=== PATIENT | male | born 1995 | race Caucasian/White ===

== ENCOUNTER 2020-10-29 09:23 | Outpatient (REF) | payer OTHER, SELFPAY ==
[2020-10-29 12:17] LABS: Alanine Aminotransferase 78 U/L (0-40); Albumin Level 4.8 g/dL (3.5-5.0); Alkaline Phosphatase 41 U/L (39-117); Anion Gap 12 (12-20); Aspartate Amino Transferase 52 U/L (5-37); Blood Urea Nitrogen 13 mg/dL (9-16); Calcium 9.6 mg/dL (8.4-10.2); Carbon Dioxide 32 mmol/L (22-29); Chloride 101 mmol/L (96-108); Cholesterol 201 mg/dL; Estimated Glomerular Filt Rate > 60; Glucose Fasting 95 mg/dL (60-99); HDL Cholesterol 35 mg/dL; LDL Cholesterol Calculated 138 mg/dl; Potassium 3.7 mmol/L (3.3-5.1); Sodium 141 mmol/L (135-145); Total Protein 7.6 g/dL (6.5-8.0); Triglycerides 143 mg/dL
[2020-10-29 13:18] LABS: TSH reflex Free T4 2.85 uIU/mL (0.32-4.0)
== END 2020-10-29 09:24 | disposition home or self-care (01) ==
LOC: HO.HMGCLDS 09:23
PROVIDERS: PCP Nurse Practitioner Family; Visit Provider Nurse Practitioner Family
DX: Z00.00 Encounter for general adult medical examination without abnormal findings (principal)
CPT/HCPCS: 36415; 80053; 80061; 84443

== ENCOUNTER 2020-11-29 09:54 | Outpatient (REF) | payer OTHER, SELFPAY ==
--- NOTE | ~2020-11-29 | US_ITS ---
EXAMINATION: US ABDOMEN COMPLETE CLINICAL INFORMATION: Elevated LFTs. COMPARISON: None. TECHNIQUE: Real-time imaging of the abdominal viscera. FINDINGS: PANCREAS: Normal. ABDOMINAL AORTA: The proximal, mid, and distal segments are normal in caliber. INFERIOR VENA CAVA: Visualized portions are normal. LIVER: The liver is normal in size. The liver contour is normal. There is diffuse increased liver echogenicity. No focal hepatic lesion. There is no intrahepatic biliary duct dilatation seen. GALLBLADDER: Normal. The gallbladder is physiologically distended without evidence of stones, sludge, polyps, wall thickening or pericholecystic fluid. COMMON BILE DUCT: Normal in caliber measuring 0.24 cm in diameter. RIGHT KIDNEY: Normal. No hydronephrosis. No renal calculi or focal parenchymal lesions. The kidney measures 12.5 cm in maximum dimension. LEFT KIDNEY: Normal. No hydronephrosis. No renal calculi or focal parenchymal lesions. The kidney measures 13.4 cm in maximum dimension. SPLEEN: Normal. The spleen measures 13.0 cm in maximum dimension. FREE FLUID: None. US/US abdomen complete IMPRESSION: Mild hepatic steatosis. No focal lesion seen. The rest of the abdominal ultrasound is unremarkable.
== END 2020-11-29 09:55 | disposition home or self-care (01) ==
LOC: HO.HMGCX 09:54
PROVIDERS: PCP Nurse Practitioner Family; Visit Provider Nurse Practitioner Family
DX: R74.8 Abnormal levels of other serum enzymes (principal)
CPT/HCPCS: 76700

== ENCOUNTER 2020-12-13 04:10 | Emergency (ER) | payer OTHER, SELFPAY ==
--- NOTE | ~2020-12-13 | XR_ITS ---
EXAMINATION: XR KNEE, LEFT CLINICAL INFORMATION: Lateral patellar pain. Rule out fracture COMPARISON: None TECHNIQUE: Four views of the left knee. FINDINGS: No fracture or subluxation. Compartmental joint spaces are maintained. No joint effusion. The soft tissues are unremarkable. XR/XR knee LT 4V IMPRESSION: Normal left knee.
[2020-12-13 04:33] VITALS: BP 171/118; PULSE 89; RESP 16; TEMP 37.3; O2SAT 97; BMI 55.0
--- NOTE | 2020-12-13 04:41 | ED.LOWEXIN ---
HPI - Extremity Injury (Lower) General Chief Complaint: Extremity Injury, Lower Stated Complaint: Knee pain Time Seen by Provider: 12/13/20 04:32 Source: patient Mode of arrival: ambulatory Limitations: no limitations History of Present Illness HPI Narrative: 25-year-old male who presents emergency department for evaluation of left knee pain. He states that he was sitting on the floor approximately 4 days prior and he pushed on his kneecap which caused him to have pain. He states that the pain eventually resolved but then returned. He states that over the past 4 nights he keeps getting pain in the left knee and he points to the left lateral patella when asked to localize the pain. He has difficulty describing the character of the pain but he states that it is constant, worse at night, worse with bending his knee and worse with walking. He states he is able to walk but he is limping. He did not take any medications for the pain. He denied fever, chills, fatigue, chest pain, cough or shortness of breath. Related Data Home Medications Medication Instructions Recorded Confirmed No Known Home Meds 10/21/20 11/15/20 Allergies Allergy/AdvReac Type Severity Reaction Status Date / Time Sulfa (Sulfonamide Allergy Unknown SWOLLEN Verified 12/13/20 04:47 Antibiotics) LIPS [SULFA (SULFONAMIDE ANTIBIOTICS)] Review of Systems Review of Systems: Yes all other systems are reviewed and are negative [facility] Past Medical History [facility] Narrative: Patient has history of hypertension, hyperlipidemia, abnormal LFTs. He denies tobacco, alcohol and drug use. Medical History (Updated 12/13/20 @ 06:03 by Mundo Linton MD) No known health problems Family History Family History Father No problems noted. Mother No problems noted. Maternal Grandmother Lung cancer Social History Social History (Updated 12/13/20 @ 04:37 by Milagros Cross) Alcohol intake: never Smoking Status: Never smoker Use of substances other than those prescribed or required for medical reasons: No Advance Directives: No Physical Exam Vital Signs: Vital Signs: Last Vital Signs Temp 99.2 F 12/13/20 04:33 Pulse 89 12/13/20 04:33 Resp 16 12/13/20 04:33 BP 171/118 H 12/13/20 04:33 Pulse Ox 97 12/13/20 04:33 Body Mass Index 55.0 Const: General: cooperative, comfortable and well groomed Nutritional Appearance: obese Orientation/consciousness: oriented to person and oriented to place HENMT: Head: Yes normal to inspection, Yes normocephalic and Yes atraumatic Resp: Effort & Inspection: normal respiratory effort Skin: General skin exam: no rashes or lesions noted Neuro: General: oriented to person and oriented to place Extrem: Other: There is no erythema or increased warmth over his knees, there are no joint effusions noted. Patient does have tenderness with palpation of the proximal lateral aspect of the patella, the patella is in normal position. The patient is able to flex extend his knee with only minimal discomfort in the patella area. The patella tendon is intact. Psych: Appearance: grossly normal Mental Status: mental status grossly normal Speech and movement: Normal speech and movement present Affect: normal affect Attitude: cooperative Thought process: Normal thought process present Course Course Course Narrative: 25-year-old male who presents emergency department for evaluation of 4 days of pain his left knee, mainly over the left lateral patella. Physical examination did reveal tenderness palpation of the left lateral patella area otherwise was unremarkable. Impression is that the patient may have sprained the patella tendon. I will obtain an x-ray to make sure there is no patellar fracture. The patient's pain was treated with ibuprofen 600 mg orally. 0557: The x-ray revealed no acute fracture of the patient's knee. Patient states that his pain is slightly improved after receiving the oral ibuprofen. Patient was given crutches to help with reducing the pain with weight-bearing. He was advised to use the crutches for 1 week. He is advised to ice and elevate the knee and to use Tylenol ibuprofen for pain. He will be given a note not return to work for 3 days. Discharge Plan Discharge Clinical Impression: Patellar tendon strain Qualifiers: Encounter type: initial encounter Laterality: left Qualified Code(s): S86.812A - Strain of other muscle(s) and tendon(s) at lower leg level, left leg, initial encounter Patient Disposition: Home, Self-Care Instructions: Knee Pain (ED) Additional Instructions: The x-ray of your left knee revealed no fracture/broken bone of the knee cap or knee. Your presentation and examination is consistent with a strain of the patella tendon of the knee cap. Use the crutches for 1 week to help reduce the weight that you put on your left knee. Take Motrin(ibuprofen) 200 mg pills, 3 pills every 6 hours as needed for pain. Take Tylenol(acetaminophen) 325 mg pills, 2 pills every 4 hours as needed for pain. Apply ice for 15 minutes to the area that hurts on your knee. Do this 4-6 times a day to help reduce the pain and inflammation in you need Follow-up with your doctor in 2 days. Please return to the Emergency Department or see your doctor immediately if your symptoms get worse or if you develop any new symptoms that are concerning you. Follow up with your doctor in 2 day. Prescriptions: No Action No Known Home Meds RF: 0 Stand Alone Forms: Work/School Release
[2020-12-13] MEDS: Ibuprofen 600 MG TABLET PO (04:55)
== END 2020-12-13 06:15 | disposition home or self-care (01) ==
PROVIDERS: Emergency Provider Emergency Medicine Emergency Medical Services; PCP Nurse Practitioner Family
DX: S86.812A Strain of other muscle(s) and tendon(s) at lower leg level, left leg, initial encounter (principal); X50.9XXA Other and unspecified overexertion or strenuous movements or postures, initial encounter; M25.562 Pain in left knee; I10 Essential (primary) hypertension; E78.5 Hyperlipidemia, unspecified; Y93.89 Activity, other specified; Y92.019 Unspecified place in single-family (private) house as the place of occurrence of the external cause; Y99.9 Unspecified external cause status
CPT/HCPCS: 73564; 99283

== ENCOUNTER 2023-07-22 13:03 | Emergency (ER) | payer OTHER, SELFPAY ==
--- NOTE | ~2023-07-22 | CT_ITS ---
Examination: CT mastoid. CLINICAL INDICATION: Right posterior swelling and pain. COMPARISON: None. TECHNIQUE: 0.6 mm thin axial and reformatted 0.6 mm thin coronal and sagittal images of petrous bones were obtained. DLP 343. This CT examination was performed using dose optimization technique as appropriate, variously including the following: Automated exposure control Adjustment of MA and/or KV according to patient size(this includes techniques or standardized protocols for targeted exams where dose is matched to indication/reason for exam; extremities or head. Use of iterative reconstruction techniques. FINDINGS: There is normal symmetry of bilateral mastoid sinuses which are clear. The bony neff along the right lateral mastoid sinus are intact bilaterally. There is normal symmetry of petrous bones with symmetrical appearing internal, axillary canal and the middle ear. Visualized bilateral sphenoid ethmoid and maxillary sinuses are clear. The soft tissues are normal. There is normal symmetry of bilateral TM joints. CT/CT mastoid IMPRESSION: 1. Unremarkable CT petrous bones. 2. The mastoid sinuses are clear.
[2023-07-22 13:55] VITALS: BP 171/93; PULSE 68; RESP 18; TEMP 37; O2SAT 96; BMI 57.7
--- NOTE | 2023-07-22 13:56 | ED.GENADULT ---
HPI - General Adult General Chief complaint: Skin/Abscess/Foreign Body Stated complaint: R side head pain Time Seen by Provider: 07/22/23 14:35 Source: patient Mode of arrival: ambulatory Limitations: no limitations History of Present Illness HPI narrative: Patient is a 27-year-old male presenting to the emergency department complaining of pain and swelling behind right ear which began the night before last. He denies ear pain, sore throat, nasal congestion, cough, fevers. States that he took some ibuprofen with temporary relief. Reports area is tender to palpation. BP noted to be elevated, patient denies any headache, blurred vision, double vision or other visual changes, chest pain, palpitations, shortness of breath. MD complaint: mastoid tenderness Onset (ago): day(s) Location: head Radiation: non-radiation Severity: severe Quality: aching Pain Consistency: constant Relieving factors: none Exacerbating factors: other (palpation) Associated symptoms: denies other symptoms Treatments prior to arrival: NSAID Related Data Previous Rx's Medication Instructions Recorded cephalexin 500 mg capsule 500 mg PO QID 7 days #28 caps 07/22/23 Allergies Allergy/AdvReac Type Severity Reaction Status Date / Time Sulfa (Sulfonamide Allergy Unknown SWOLLEN Verified 12/13/20 04:47 Antibiotics) LIPS [SULFA (SULFONAMIDE ANTIBIOTICS)] Review of Systems Review of Systems: As per HPI. Yes all other systems are reviewed and are negative Constitutional: Constitutional: Reports as per HPI [facility] Past Medical History Medical History (Updated 07/22/23 @ 16:52 by Vinita West NP) No known health problems Family History Family History Father No problems noted. Mother No problems noted. Maternal Grandmother Lung cancer Social History Social History (Updated 12/13/20 @ 04:37 by Milagros Cross) Alcohol intake: never Advance Directives: No Advance Directives Information Provided: Yes Physical Exam ED Vital Signs: Vital Signs - 24 hr 07/22/23 13:55 Temperature 98.6 F Pulse Rate 68 Respiratory Rate 18 Blood Pressure 171/93 H Pulse Oximetry 96 Oxygen Delivery Method Room Air BMI result Body Mass Index 57.7 Vital signs have been reviewed and appear to be correct. Blood pressure elevated. Heart rate normal. Respiratory rate normal. Temperature normal. Oxygen saturation normal. Const General: cooperative, healthy appearing and no acute distress Orientation/consciousness: oriented to person, oriented to place, oriented to time and patient oriented x3 Limitations: no limitations HENMT Head: Yes normocephalic and Yes atraumatic Ears: hearing grossly normal bilaterally, external ears normal, TM normal on the right, EAC's normal, mastoids normal on the right edematous and tender; no erythema and on the left, no periauricular adenopathy, TM abnormal erythematous on the left and other (no erythema, warmth, fluctuance) General nose exam: Normal external nose present, Normal nasal mucous membranes and turbinates present and Normal septum present Face and sinus: Yes face symmetric Mouth: oropharynx normal and moist mucous membranes Throat: Yes uvula midline Eyes Pupils: Equal, round and reactive pupils present Neck Neck: Yes normal visual inspection and Yes supple Resp Effort & Inspection: normal respiratory effort and able to speak in complete sentences Auscultation: clear to auscultation bilaterally Cardio Rate: regular rate Rhythm: regular rhythm Heart sounds: S1 normal heart sound present and S2 normal heart sound present GI Palpation (GI): Soft to palpation and nontender Auscultation: normoactive bowel sounds General: Yes no CVA tenderness Back/Spine/Pelvis Back: no CVA tenderness Skin General skin exam: elasticity normal and turgor normal Neuro General: oriented to person, oriented to place, oriented to time, patient oriented x3, moves all extremities, no focal motor deficits and CN's II-XI intact bilaterally Cranial nerves: Yes Equal, round and reactive pupils present Cognition (Neuro): normal cognition Extrem General: Yes full ROM, Yes no pedal edema and Yes no calf tenderness Psych Mental Status: mental status grossly normal Affect: normal affect Thought process: Normal thought process present Course Course Course Narrative: This is a rapid medical exam. Deferred additional HPI, ROS, PE to primary provider. 27 yo with history of HTN here with complaints of swelling behind right ear x several days. On exam swelling over the right mastoid bone with tenderness to palpation. Will need labs, viral testing, CT mastoid VSS Medications Administered Discontinued Medications Generic Name Dose Route Start Last Admin Trade Name Freq PRN Reason Stop Dose Admin Acetaminophen 975 mg 07/22/23 16:34 07/22/23 16:40 Acetaminophen 325 Mg Tablet PO 07/22/23 16:35 975 mg ONCE ONE Administration Ibuprofen 600 mg 07/22/23 16:34 07/22/23 16:40 Ibuprofen 600 Mg Tablet PO 07/22/23 16:35 600 mg ONCE ONE Administration Medical Decision Making Medical Decision Making [facility] Narrative: Patient is a 27-year-old male presenting to the emergency department complaining of pain and swelling behind right ear which began the night before last. On exam patient is awake, A+Ox3, VS WNL, afebrile, normal neurological exam without focal deficits, physical exam findings as above. Given reported symptoms and physical exam findings, initial differential includes mastoiditis, periauricular lymphadenopathy, folliculitis, cyst. Labs notable for no leukocytosis, no electrolyte abnormalities, negative flu, RSV, COVID. CT notable for no evidence of mastoiditis. My interpretation is in agreement with the radiologist's interpretation. Patient reports similar symptoms have improved in the past with antibiotics. Will prescribe course of cephalexin. Strict return precautions discussed with patient. Discussed with patient that his blood pressure readings were elevated in the emergency department today. Patient is asymptomatic. Instructed patient to follow up with PCP regarding this. Patient verbalized understanding of and agreement with plan. Return precautions discussed at bedside. Patient verbalized understanding agreement plan. Differential Diagnosis Differential Diagnoses: The differential diagnosis associated with the presentation includes As per [facility]. Admission/Observation Consideration of admission/observation: Escalation of care including admission/observation considered Lab Data [facility] Lab Attestation statement: I reviewed the patient's lab results. As per [facility] 07/22/23 14:17 07/22/23 14:17 Labs: Lab Results 07/22/23 Range/Units 14:17 WBC 8.3 (4.8-10.8) X10*3/uL RBC 5.48 (4.60-5.80) X10*6/uL Hgb 16.1 (14.0-18.0) g/dl Hct 46.3 (42.0-52.0) % MCV 84.5 (80.0-98.0) fL MCH 29.4 (27.0-33.0) pg MCHC 34.8 (31.0-36.0) g/dl RDW 12.6 (11.0-16.0) % Plt Count 268 (160-400) X10*3/uL MPV 10.4 (9.4-12.4) fL Immature Gran % (Auto) 0.6 H (0.0-0.4) % Neut % (Auto) 58.5 (45-73) % Lymph % (Auto) 28.4 (20-40) % Cocke % (Auto) 9.9 (2-11) % Eos % (Auto) 1.8 (0-4) % Baso % (Auto) 0.8 (0-2) % Lymph # (Auto) 2.4 (1.2-4.9) X10*3/uL Cocke # (Auto) 0.8 (0.1-1.2) X10*3/uL Eos # (Auto) 0.2 (0.0-0.4) X10*3/uL Baso # (Auto) 0.1 (0.0-0.2) X10*3/uL Abs Immat Gran (auto) 0.05 H (0.00-0.03) X10*3/uL Absolute Neuts (auto) 4.9 (2.0-8.3) x10*3/uL Absolute Nucleated RBC 0.000 (0.0-0.012) X10*3/uL Nucleated RBC % (auto) 0.0 (0.0-0.2) /100WBC Sodium 140 (135-145) mmol/L Potassium 3.7 (3.3-5.1) mmol/L Chloride 105 (96-108) mmol/L Carbon Dioxide 24 (22-29) mmol/L Anion Gap 15 (12-20) BUN 11 (9-16) mg/dL Creatinine 0.82 (0.5-1.4) mg/dL Estim Creat Clear Calc 226.1 Estimated GFR > 60 Random Glucose 94 (60-115) mg/dL Calcium 9.6 (8.4-10.2) mg/dL Influenza Type A (PCR) NEGATIVE (Negative) Influenza Type B (PCR) NEGATIVE (Negative) RSV RNA Qual (PCR) NEGATIVE (Negative) SARS-CoV-2 RNA (RT-PCR) NEGATIVE (Negative) Independent Interpretation I performed an independent interpretation of an: CT Scan Interpretation: No evidence of mastoiditis Radiology Impression Discussion of test interpretation with radiology: I have reviewed the radiologist's reading. External Record Review External record reviewed: Inpatient record, Office record and Outpatient record Prescription Management I considered prescription management with: Antibiotic Discharge Plan Discharge Clinical Impression: Scalp cyst, HTN (hypertension) Patient Disposition: Home, Self-Care Instructions: Hypertension (ED), Cyst (ED) Additional Instructions: You are being treated for a scalp cyst with antibiotics, please complete the full course as prescribed. Your blood pressure was elevated in the emergency department today, please follow up with your primary care provider regarding this. Return to the emergency department if you develop increased pain, swelling, redness, warmth, thick yellow drainage from the area, fever 100.4? F or greater or any other concerning symptoms. Prescriptions: New cephalexin 500 mg capsule 500 mg PO QID 7 Days Qty: 28 0RF
[2023-07-22 14:22] LABS: MANUAL DIFF FLAG NO
[2023-07-22 14:24] LABS: Basophils Absolute Auto 0.1 X10*3/uL (0.0-0.2); Basophils Percent Auto 0.8 % (0-2); Eosinophils Absolute Auto 0.2 X10*3/uL (0.0-0.4); Eosinophils Percent Auto 1.8 % (0-4); Hematocrit 46.3 % (42.0-52.0); Hemoglobin 16.1 g/dl (14.0-18.0); Imm Gran Abs Auto 0.05 X10*3/uL (0.00-0.03); Imm Gran Pct Auto 0.6 % (0.0-0.4); Lymphocytes Absolute Auto 2.4 X10*3/uL (1.2-4.9); Lymphocytes Percent Auto 28.4 % (20-40); Mean Corpuscular HGB Conc 34.8 g/dl (31.0-36.0); Mean Corpuscular Hemoglobin 29.4 pg (27.0-33.0); Mean Corpuscular Volume 84.5 fL (80.0-98.0); Mean Platelet Volume 10.4 fL (9.4-12.4); Monocytes Absolute Auto 0.8 X10*3/uL (0.1-1.2); Monocytes Percent Auto 9.9 % (2-11); Neutrophils Absolute Auto 4.9 x10*3/uL (2.0-8.3); Neutrophils Percent Auto 58.5 % (45-73); Platelet Count 268 X10*3/uL (160-400); Red Blood Count 5.48 X10*6/uL (4.60-5.80); Red Cell Distribution Width 12.6 % (11.0-16.0); White Blood Count 8.3 X10*3/uL (4.8-10.8)
[2023-07-22 14:40] LABS: Anion Gap 15 (12-20); Blood Urea Nitrogen 11 mg/dL (9-16); Calcium 9.6 mg/dL (8.4-10.2); Carbon Dioxide 24 mmol/L (22-29); Chloride 105 mmol/L (96-108); Creatinine Clr Calc Pharmacy 226.1; Estimated Glomerular Filt Rate > 60; Glucose Random 94 mg/dL (60-115); Potassium 3.7 mmol/L (3.3-5.1); Sodium 140 mmol/L (135-145)
[2023-07-22 15:00] LABS: Influenza A PCR NEGATIVE (Negative); Influenza B PCR NEGATIVE (Negative); Resp Syncy Virus RNA Qual PCR NEGATIVE (Negative); SARS COV2 PCR INHOUSE NEGATIVE (Negative)
[2023-07-22] MEDS: Ibuprofen 600 MG TABLET PO (16:40)
[2023-07-22] MEDS: Acetaminophen 325 MG TABLET 975 MG PO (16:40)
== END 2023-07-22 17:02 | disposition home or self-care (01) ==
PROVIDERS: Nurse Practitioner Family; Emergency Provider Emergency Medicine Emergency Medical Services
DX: L72.8 Other follicular cysts of the skin and subcutaneous tissue (principal); I10 Essential (primary) hypertension; H92.01 Otalgia, right ear; E78.5 Hyperlipidemia, unspecified; Z20.822 Contact with and (suspected) exposure to COVID-19; Z20.828 Contact with and (suspected) exposure to other viral communicable diseases
CPT/HCPCS: 0241U; 70481; 80048; 85025; 99283; 99284

== ENCOUNTER 2023-12-25 10:23 | Outpatient (AMB) | payer OTHER, BC, SELFPAY ==
[2023-12-25 10:24] VITALS: BP 140/92; PULSE 65; TEMP 36.6; O2SAT 97
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
== END 2023-12-25 12:08 | disposition home or self-care (01) ==
PROVIDERS: Visit Provider Nurse Practitioner Primary Care
DX: M54.9 Dorsalgia, unspecified (principal)
CPT/HCPCS: 99213

== ENCOUNTER 2023-12-25 10:45 | Outpatient (REF) | payer BC, SELFPAY ==
--- NOTE | ~2023-12-25 | XR_ITS ---
EXAMINATION: XR CERVICAL SPINE CLINICAL INFORMATION: Dorsalgia COMPARISON: None available. TECHNIQUE: 3 views of the cervical spine were obtained. FINDINGS: No acute visible fracture or dislocation. Straightening with slight reversal of the normal cervical curvature. Vertebral body heights and disc spaces are maintained. Prevertebral soft tissues are unremarkable. Posterior elements are intact. Paraspinal soft tissues are unremarkable. Visualized portions of the upper chest are unremarkable. XR/XR cervical spine 3V IMPRESSION: 1. No acute visible fracture or dislocation. 2. Straightening with slight reversal of the normal cervical curvature.
== END 2023-12-25 10:46 | disposition home or self-care (01) ==
LOC: HO.HMGCX 10:45
PROVIDERS: Visit Provider Nurse Practitioner Primary Care
DX: M54.9 Dorsalgia, unspecified (principal)
CPT/HCPCS: 72040